=== PATIENT | female | born 2000 | race African-American/Black ===

== ENCOUNTER → 2024-01-03 09:35 | Outpatient (CLI) | payer OTHER, SELFPAY ==
--- NOTE | 2024-01-03 09:38 | DI.US.S_ITS ---
PROCEDURE: US ABDOMEN LIMITED INDICATIONS: ELEVATED BILIRUBIN TECHNIQUE: Real-time focused scanning was performed of the abdomen, with image documentation. COMPARISON: None. FINDINGS: The liver is normal in size and demonstrates no suspicious lesions. The liver echogenicity is considered to be within normal limits. No findings of gallstones or sludge are seen. The gallbladder wall is not thickened, measuring 3 mm or less. No specific pericholecystic fluid is seen. The sonographic Jonas sign is negative. There is no biliary dilatation, the common bile duct measures 2 mm. No significant pancreatic abnormality is seen on these images. The visualized right kidney is unremarkable, without hydronephrosis. IMPRESSION: No significant ultrasound abnormality can be seen to explain the patient's presenting history. The gallbladder demonstrates a normal sonographic appearance. No biliary dilatation is seen. Dictated by: Leander Crum M.D. on 01/03/2024 at 12:16 Approved by: Leander Crum M.D. on 01/03/2024 at 12:17
== END ==
LOC: US 09:37
DX: E80.6 Other disorders of bilirubin metabolism (principal)
CPT/HCPCS: 76705

== ENCOUNTER → 2024-03-21 11:17 | Outpatient (CLI) | payer OTHER, SELFPAY ==
--- NOTE | 2024-03-21 11:18 | DI.US.S_ITS ---
PROCEDURE: US PELVIC COMPLETE INDICATIONS: BREAKDOWN(MECHANICAL) OF IUD TECHNIQUE: Real-time scanning was performed of the pelvic organs, with image documentation. Additional endovaginal scanning was necessary due to incomplete visualization of the adnexal and endometrial structures by transabdominal scanning. COMPARISON: None. FINDINGS: Uterus: Uterus is anteverted and normal in size at 7.4 x 4.0 x 4.6 cm. The myometrium is homogeneous. Echogenic intrauterine device in good position obscures the endometrial thickness. Ovaries: The right ovary measures 5.3 x 3.2 x 2.9 cm, with a calculated ovarian volume of 26.0 cc. The left ovary measures 7.1 x 2.4 x 2.2 cm, with a calculated ovarian volume of 19.5 cc. The ovaries have a normal sonographic appearance. Bilateral ovarian cysts measure up to 3.1 cm on the right No adnexal masses are seen. Other: No pathologic free abdominal or pelvic fluid. IMPRESSION: Intrauterine device in good position Approved by: Isaias Knott M.D. on 03/21/2024 at 19:23
== END ==
PROVIDERS: Referring Provider Student in an Organized Health Care Education/Training Program; Visit Provider Student in an Organized Health Care Education/Training Program
DX: T83.31XA Breakdown (mechanical) of intrauterine contraceptive device, initial encounter (principal)
CPT/HCPCS: 76856